=== PATIENT | male | born 1970 | race Caucasian/White ===

== ENCOUNTER 2016-11-25 18:10 | Emergency (ER) | payer MEDICAID, OTHER ==
[2016-11-25 18:40] VITALS: BP 126/80
--- NOTE | 2016-11-25 18:55 | UC ---
Shoulder Pain HPI - HPI Summary HPI Summary: The patient comes in today for: 1. Left shoulder and neck pain: Onset: 2 days ago. Palliative/provocative: Hot water makes it feel better. Quality: Sharp pain at times. Burning pain at times--"Like a pulled muscle." Region/radiation: Depending on his movement, the pain may be in the posterior left neck or the shoulder or the arm. Severity: Intially, it was a 10/10, but now it is a 5/10 Time: Associated symptoms: Progression: He states that it has been improving. Previous treatment: Hot showers and Tylenol. Previous illness: He thinks that with his back pain, he "tosses and turns at night" which he thinks caused it. Numbness: He states that the left arm tingles. Weakness: None. Injury: None to the lower neck or back. Legal: The patient has a legal (workmen's compensation) case regarding his lower back pain. 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 The patient thinks that he would want x-rays. * - History of Current Complaint Chief Complaint: UCUpperExtremity Stated Complaint: NECK AND SHOULDER PAIN Time Seen by Provider: 11/25/16 18:35 Hx Obtained From: Patient - Allergies/Home Medications Allergies/Adverse Reactions: Allergies Allergy/AdvReac Type Severity Reaction Status Date / Time No Known Allergies Allergy Verified 11/25/16 18:40 PMH/Surg Hx/FS Hx/Imm Hx Previously Healthy: Yes Endocrine History Of: Denies: Diabetes, Thyroid Disease, Hyperthyroidism, Hypothyroidism, Dyslipidemia Cardiovascular History Of: Denies: Cardiac Disorders, Hypertension, Pacemaker/ICD, Myocardial Infarction , Congestive Heart Failure, Atrial Fibrillation, Deep Vein Thrombosis, Bleeding Disorders Respiratory History Of: Denies: COPD, Asthma, Bronchitis, Pneumonia, Pulmonary Embolism GI/ History Of: Reports: Gastroesophageal Reflux - He will wake up "every once in a while with a sore throat." Denies: Ulcer, Gastrointestinal Bleed, Gall Bladder Disease, Kidney Stones, Diverticulitis, Renal Disease, Urosepsis Neurological History Of: Denies: TIA, CVA, Dementia, Seizures, Migraine Psychological History Of: Denies: Anxiety, Depression, Bipolar Disorder, Schizophrenia, Post Traumatic Stress Disorder Cancer History Of: Denies: Lung Cancer, Colorectal Cancer, Breast Cancer, Prostate Cancer, Cervical Cancer Other History Of: Negative For: HIV, Hepatitis B, Hepatitis C, Anticoagulant Therapy - Surgical History Surgical History: Yes Surgery Procedure, Year, and Place: Left knee 1994. Right Knee 1993 - Family History Known Family History: Negative: Cardiac Disease, Hypertension - Social History Occupation: Unemployed Lives: With Family Alcohol Use: None Substance Use Type: Marijuana Smoking Status (MU): Former Smoker Type: Cigarettes Length of Time of Smoking/Using Tobacco: 25 years When Did the Patient Quit Smoking/Using Tobacco: 2009 - Immunization History Most Recent Influenza Vaccination: denies Review of Systems Constitutional: Negative Skin: Negative Eyes: Negative ENT: Negative Respiratory: Negative Cardiovascular: Negative Gastrointestinal: Negative Genitourinary: Negative Motor: Negative All Other Systems Reviewed And Are Negative: Yes Physical Exam Triage Information Reviewed: Yes Appearance: Well-Appearing, No Pain Distress, Well-Nourished Vital Signs: Initial Vital Signs Temp 99.1 F 11/25/16 18:30 Pulse 74 11/25/16 18:30 Resp 18 11/25/16 18:30 BP 126/80 11/25/16 18:30 Pulse Ox 94 11/25/16 18:30 Vital Signs Reviewed: Yes Eyes: Positive: Conjunctiva Clear. Negative: Discharge ENT: Positive: Hearing grossly normal. Negative: Pharyngeal erythema, Nasal congestion, Nasal drainage, TM bulging, TM dull, TM red, Tonsillar swelling, Tonsillar exudate Dental: Negative: Gross Decay/Caries @, Dental Fracture @ Neck: Positive: Supple, Nontender, No Lymphadenopathy. Negative: Nuchal Rigidity Respiratory: Positive: Chest non-tender, Lungs clear, No respiratory distress, No accessory muscle use. Negative: Crackles, Wheezing Cardiovascular: Positive: RRR, No Murmur Abdomen Description: Positive: Nontender, No Organomegaly, Soft. Negative: Distended, Guarding Musculoskeletal: Positive: Strength Intact, ROM Intact, No Edema, Other: - Neck : The patient has good flexion, but backward extention was limited. Left rotation and flexion was limited. There was tenderness to palpation of the left scalene, and supraspinatous/trapezius musculature. NVI for both upper arms. There was no fasisculations or atrophy. There were no enlarged lymph nodes. DTR are 2+/2 x 2 for triceps, biceps, and brachioradialis. Neurological: Positive: Alert, Muscle Tone Normal Psychological: Positive: Age Appropriate Behavior, Consolable Skin: Negative: rashes, breakdown Diagnostics - Radiology No standard instances Xray Interpretation: Positive (See Comments) - He has degenerative changes of the cervical spine and shoulder. Radiology Interpretation Completed By: Radiologist Shoulder Course/Dx - Course Course Of Treatment: Patient was told of the results (degenerative changes of left shoulder and cervical spine) - Differential Dx/Diagnosis Provider Diagnoses: shoulder strain (left). Cervical strain (left). degenerative changes of the cervical spine and the left shoulder. Discharge - Discharge Plan Condition: Stable Disposition: HOME Patient Education Materials: Cervical Strain (ED), Shoulder Sprain (ED) Referrals: No Primary Care Phys,NOPCP [Primary Care Provider] - [facility] REFERRAL [Outside] Additional Instructions: Please see your primary care provider in a week to see how well you are doing. If you don't have a primary care provider, please call the physician referral phone line to help you get one. If you can't get in timely, you can see us until you do. If you get worse, please go to the local ER.
--- NOTE | 2016-11-25 19:36 | RAD ---
Indication: Limited range of motion of the neck and burning sensation with turning LEFT or RIGHT with radiation to the RIGHT shoulder and arm. No preceding injury. Comparison: None. Technique: AP, open-mouth odontoid, lateral, and oblique views cervical spine. Report: Straightening without subluxation at any level. Negative for fracture. Multilevel mild vertebral endplate osteophytosis. No significant disc space narrowing. Multilevel mild facet joint osteoarthritis. While obliquity limits assessment there is suggestion of potential osseous foraminal stenosis at C5-C6 on the RIGHT secondary to uncinate process spurring and facet joint osteoarthritis. Unremarkable prevertebral soft tissue contours. IMPRESSION: Multilevel mild degenerative spondylosis and facet joint osteoarthritis. While obliquity limits assessment there is suggestion of potential osseous foraminal stenosis at C5-C6 on the RIGHT secondary to uncinate process spurring and facet joint osteoarthritis. Correlate with clinical assessment and consider nonemergent MRI for most accurate assessment of foraminal stenosis.
--- NOTE | 2016-11-25 19:38 | RAD ---
Indication: Pain without proceeding injury. Comparison: No relevant prior exams available on the [facility] PACS. Technique: Internal and external rotation AP and scapular Y views LEFT shoulder Report: Normal acromioclavicular and glenohumeral joint alignment. Mild osteophytosis at both the acromioclavicular and glenohumeral joints. Negative for fracture, focal osseous lesion, or stigmata of calcific tendinopathy. Unremarkable soft tissue contours. IMPRESSION: Mild acromioclavicular and glenohumeral joint osteoarthritis.
== END 2016-11-25 20:17 | disposition home or self-care (01) ==
LOC: UCEAST 18:10
DX: S46.912A Strain of unspecified muscle, fascia and tendon at shoulder and upper arm level, left arm, initial encounter (principal); S16.1XXA Strain of muscle, fascia and tendon at neck level, initial encounter; X58.XXXA Exposure to other specified factors, initial encounter; Y93.9 Activity, unspecified; Y92.9 Unspecified place or not applicable; M50.30 Other cervical disc degeneration, unspecified cervical region; M19.012 Primary osteoarthritis, left shoulder; Z87.891 Personal history of nicotine dependence
CPT/HCPCS: 72050; 99202; G0463

== ENCOUNTER 2017-11-27 15:10 | Emergency (ER) | payer OTHER ==
[2017-11-27 15:43] VITALS: BP 147/86
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
== END 2017-11-27 17:09 | disposition home or self-care (01) ==
LOC: UCEAST 15:10
DX: M54.6 Pain in thoracic spine (principal); M54.2 Cervicalgia; M79.641 Pain in right hand; M25.531 Pain in right wrist; R20.2 Paresthesia of skin; Z87.891 Personal history of nicotine dependence
CPT/HCPCS: 72125; 72128; 99211; G0463

== ENCOUNTER 2018-01-25 09:58 | Emergency (ER) | payer SELFPAY ==
[2018-01-25 10:05] VITALS: BP 118/75
--- NOTE | 2018-01-25 10:41 | UC ---
FLU HPI - HPI Summary HPI Summary: symptoms started 3 days ago with fever, chills, cough, body aches, ST. next day had diarrhea, and today coughing and chest snyder with cough. is feeling worse not better. Pt did not receive Flu shot this year has tried no meds - History of Current Complaint Chief Complaint: UCRespiratory Stated Complaint: COUGH, AND DIARRHEA Time Seen by Provider: 01/25/18 10:18 Hx Obtained From: Patient Onset/Duration: Sudden Onset Severity Currently: Moderate Severity Initially: Moderate Pain Intensity: 6 Associated Signs & Symptoms: Positive: Fever, Cough, Sore Throat, Nasal Congestion, Diarrhea - Allergy/Home Medications Allergies/Adverse Reactions: Allergies Allergy/AdvReac Type Severity Reaction Status Date / Time No Known Allergies Allergy Verified 01/25/18 10:06 Home Medications: Home Medications Omeprazole 40 mg PO DAILY 01/25/18 [History Confirmed 01/25/18] PMH/Surg Hx/FS Hx/Imm Hx Previously Healthy: Yes GI/ History: Gastroesophageal Reflux Other History Of: Negative For: HIV, Hepatitis B, Hepatitis C, Anticoagulant Therapy - Surgical History Surgical History: Yes Surgery Procedure, Year, and Place: Left knee 1994 CALCIUM BUILD UP REMOVED. Right Knee 1993 MENISCUS REPAIR - Family History Known Family History: Positive: None Negative: Cardiac Disease, Hypertension - Social History Occupation: Disabled Lives: With Family Alcohol Use: None Substance Use Type: Marijuana Smoking Status (MU): Former Smoker Type: Cigarettes Length of Time of Smoking/Using Tobacco: 25 years When Did the Patient Quit Smoking/Using Tobacco: 2009 - Immunization History Most Recent Influenza Vaccination: denies Review of Systems Constitutional: Fever, Chills, Fatigue Skin: Negative Eyes: Negative ENT: Sore Throat, Sinus Congestion Respiratory: Cough Cardiovascular: Negative Gastrointestinal: Diarrhea Genitourinary: Negative Neurological: Negative Psychological: Negative Is Patient Immunocompromised?: No All Other Systems Reviewed And Are Negative: Yes Physical Exam Triage Information Reviewed: Yes Appearance: Well-Appearing, No Pain Distress, Well-Nourished Vital Signs: Initial Vital Signs Temp 98 F 01/25/18 10:03 Pulse 86 01/25/18 10:03 Resp 16 01/25/18 10:03 BP 118/75 01/25/18 10:03 Pulse Ox 99 01/25/18 10:03 Vital Signs Reviewed: Yes Eyes: Positive: Conjunctiva Clear ENT: Positive: Pharynx normal, Nasal congestion, TMs normal Neck exam: Normal Neck: Positive: Supple, Nontender, No Lymphadenopathy Respiratory: Positive: Lungs clear Cardiovascular Exam: Normal Cardiovascular: Positive: RRR Abdominal Exam: Normal Abdomen Description: Positive: Nontender, No Organomegaly, Soft Bowel Sounds: Positive: Present Neurological Exam: Normal Neurological: Positive: Alert Psychological Exam: Normal Skin Exam: Normal Skin: Negative: rashes Flu Course/Dx - Differential Dx/Diagnosis Differential Diagnosis/HQI/PQRI: Bronchitis, Influenza, Pneumonia, Upper Respiratory Infection Provider Diagnoses: upper respiratory infection Discharge - Sign-Out/Discharge Documenting (check all that apply): Discharge/Admit/Transfer - Discharge Plan Condition: Good Disposition: HOME Prescriptions: Azithromyxin SAHARA (NF) [Z-Sahara (Zithromax) 250 mg tabs #6] 2 tab PO .TODAY, THEN 1 DAILY #6 tab Patient Education Materials: Upper Respiratory Infection (ED) Referrals: Garry Barkley MD [Primary Care Provider] - 2 Days (if no better) Additional Instructions: drink plenty of fluuids may continue DayQuil and Nyquil for symptom relief as directed - Billing Disposition and Condition Condition: GOOD Disposition: HOME
== END 2018-01-25 11:10 | disposition home or self-care (01) ==
LOC: UCEAST 09:58
DX: J06.9 Acute upper respiratory infection, unspecified (principal); K21.9 Gastro-esophageal reflux disease without esophagitis; Z87.891 Personal history of nicotine dependence
CPT/HCPCS: 87502; 99212; G0463

== ENCOUNTER 2019-03-15 08:09 | Emergency (ER) | payer MEDICAID, OTHER ==
[2019-03-15 08:26] VITALS: BP 115/71
--- NOTE | 2019-03-15 08:57 | UC ---
Neck Pain HPI - HPI Summary HPI Summary: 48-year-old male who during the night and felt like he was getting a right trapezius muscle strain with no known injury. He does landscaping. He states when he awakened this morning the muscle was more tight and more tender. No recent illness, no fever. - History of Current Complaint Chief Complaint: UCBackPain Stated Complaint: NECK/SHOULDER UPPER BACK PAIN Time Seen by Provider: 03/15/19 08:52 Hx Obtained From: Patient Onset/Duration Of Injury/Symptoms: Hours Mechanism Of Injury: No Known Trauma Timing: Intermittent Episodes Onset/Duration: Gradual Onset - Pain mostly with movement. Gradual onset during the night and he awakened this morning and the pain was worse. Severity: Mild Pain Intensity: 7 Character: Dull, Aching Aggravating Factors: Movement Alleviating Factors: Position Associated Signs & Symptoms: Positive: Negative - Allergies/Home Medications Allergies/Adverse Reactions: Allergies Allergy/AdvReac Type Severity Reaction Status Date / Time No Known Allergies Allergy Verified 03/15/19 08:26 Home Medications: Home Medications Acetaminophen [Pain Relief Extra Strength] 1,000 mg PO ONCE PRN 03/15/19 [ History Confirmed 03/15/19] PMH/Surg Hx/FS Hx/Imm Hx Previously Healthy: Yes Other History Of: Negative For: HIV, Hepatitis B, Hepatitis C, Anticoagulant Therapy - Surgical History Surgical History: Yes Surgery Procedure, Year, and Place: Left knee 1994 CALCIUM BUILD UP REMOVED. Right Knee 1993 MENISCUS REPAIR - Family History Known Family History: Positive: None Negative: Cardiac Disease, Hypertension - Social History Alcohol Use: Occasionally Substance Use Type: Marijuana Smoking Status (MU): Former Smoker Type: Cigarettes Length of Time of Smoking/Using Tobacco: 25 years When Did the Patient Quit Smoking/Using Tobacco: 2009 - Immunization History Most Recent Influenza Vaccination: denies Review of Systems All Other Systems Reviewed And Are Negative: Yes Motor: Positive: Other - Pain and tightness right trapezius muscle and right sternocleidomastoid muscle with movement. Is Patient Immunocompromised?: No Physical Exam Triage Information Reviewed: Yes Appearance: Well-Appearing, No Pain Distress, Well-Nourished Vital Signs: Initial Vital Signs Temp 98.9 F 03/15/19 08:22 Pulse 56 03/15/19 08:22 Resp 18 03/15/19 08:22 BP 115/71 03/15/19 08:22 Pulse Ox 97 06/17/19 08:22 Vital Signs Reviewed: Yes Eyes: Positive: Conjunctiva Clear ENT: Positive: Hearing grossly normal, Pharynx normal, TMs normal, Uvula midline Neck: Positive: Supple, No Lymphadenopathy, Other: - Tenderness on palpation to the right sternocleidomastoid muscle however it is not presently in spasm. Respiratory: Positive: Lungs clear, Normal breath sounds, No respiratory distress, No accessory muscle use Cardiovascular: Positive: RRR, No Murmur, Pulses Normal, Brisk Capillary Refill Musculoskeletal: Positive: Strength Intact, ROM Intact, Other: - Patient has good range of motion however he does have pain in the right trapezius muscle up into the sternocleidomastoid muscle with movement. The muscle itself is mildly tender on palpation and feels very tight. Neurological Exam: Normal Psychological Exam: Normal Skin Exam: Normal Neck Pain Course/Dx - Course Course Of Treatment: This is a typical right trapezius muscle strain and partially right torticollis. I'm giving patient off work until Friday, he is to apply heat to the sore areas, take Flexeril and Motrin as prescribed. He is to avoid movements that cause pain. - Differential Dx/Diagnosis Provider Diagnosis: Torticollis Discharge - Sign-Out/Discharge Documenting (check all that apply): Patient Departure All imaging exams completed and their final reports reviewed: No Studies - Discharge Plan Condition: Fair Disposition: HOME Prescriptions: Cyclobenzaprine TAB* [Flexeril 10 MG TAB*] 10 mg PO TID PRN #15 tab PRN Reason: Pain Ibuprofen TAB* [Motrin TAB* 600 MG] 600 mg PO Q8H PRN #15 tab PRN Reason: Pain Patient Education Materials: Cervical Strain (DC) Forms: *Work Release Referrals: Garry Barkley MD [Primary Care Provider] - Additional Instructions: Apply heat to the sore area, do not drink alcohol, drive or operate machinery while you're taking the muscle relaxant. Follow-up with your primary care provider on Friday if no improvement. Avoid movements that cause pain. - Billing Disposition and Condition Condition: FAIR Disposition: Home
== END 2019-03-15 09:00 | disposition home or self-care (01) ==
LOC: UCEAST 08:09
DX: M43.6 Torticollis (principal); Z87.891 Personal history of nicotine dependence
CPT/HCPCS: 99212; G0463

== ENCOUNTER 2019-03-29 07:39 | Emergency (ER) | payer SELFPAY ==
[2019-03-29 07:52] VITALS: BP 118/79
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
== END 2019-03-29 08:50 | disposition home or self-care (01) ==
LOC: UCEAST 07:39
DX: S93.602A Unspecified sprain of left foot, initial encounter (principal); V29.88XA Motorcycle rider (driver) (passenger) injured in other specified transport accidents, initial encounter; Y92.410 Unspecified street and highway as the place of occurrence of the external cause; Z87.891 Personal history of nicotine dependence
CPT/HCPCS: 99201; G0463

== ENCOUNTER 2019-04-13 11:07 | Emergency (ER) | payer SELFPAY ==
[2019-04-13 11:48] VITALS: BP 115/62
--- NOTE | 2019-04-13 12:23 | UC ---
Skin Complaint HPI - HPI Summary HPI Summary: 48 yo male presents with RIGHT shoulder bug bite. He tells me that about a week ago he had a bug bite to the area that he thinks was a spider bite. About 4 days ago he started developing redness that has gotten larger and slightly warm. No fevers, chills, or drainage from the site. - History of Current Complaint Chief Complaint: UCSkin Time Seen by Provider: 04/13/19 12:23 Stated Complaint: BITE RT UPPER ARM Hx Obtained From: Patient Onset/Duration: Gradual Onset Onset Severity: Mild Current Severity: Mild Pain Intensity: 3 Pain Scale Used: 0-10 Numeric - Allergy/Home Medications Allergies/Adverse Reactions: Allergies Allergy/AdvReac Type Severity Reaction Status Date / Time No Known Allergies Allergy Verified 04/13/19 11:48 PMH/Surg Hx/FS Hx/Imm Hx - Additional Past Medical History Additional PMH: None Other History Of: Negative For: HIV, Hepatitis B, Hepatitis C, Anticoagulant Therapy - Surgical History Surgical History: Yes Surgery Procedure, Year, and Place: Left knee 1994 [facility] BUILD UP REMOVED. Right Knee 1993 [facility] REPAIR - Family History Known Family History: Positive: None Negative: Cardiac Disease, Hypertension - Social History Lives: With Family Alcohol Use: Occasionally Substance Use Type: Marijuana Smoking Status (MU): Former Smoker Type: Cigarettes Length of Time of Smoking/Using Tobacco: 25 years When Did the Patient Quit Smoking/Using Tobacco: 2009 - Immunization History Most Recent Influenza Vaccination: denies Review of Systems All Other Systems Reviewed And Are Negative: Yes Constitutional: Positive: Negative Skin: Positive: Other - Redness and bug bite right shoulder Respiratory: Positive: Negative Cardiovascular: Positive: Negative Neurovascular: Positive: Negative Musculoskeletal: Positive: Negative Neurological: Positive: Negative Psychological: Positive: Negative Physical Exam - Summary Physical Exam Summary: GENERAL: NAD. WDWN. No pain distress. SKIN: RIGHT SHOULDER: 5.5cm diameter area of mild erythema and warmth with central bug bite. Slightly TTP. No streaking, drainage, abscess, or edema. NECK: Supple. Nontender. No lymphadenopathy. CHEST: No accessory muscle use. Breathing comfortably and in no distress. CV: Pulses intact. Cap refill <2seconds MSK: Right shoulder: FROM without pain NEURO: Alert. PSYCH: Age appropriate behavior. Triage Information Reviewed: Yes Vital Signs: Initial Vital Signs Temp 98 F 04/13/19 11:45 Pulse 68 04/13/19 11:45 Resp 17 04/13/19 11:45 BP 115/62 04/13/19 11:45 Pulse Ox 100 04/13/19 11:45 Vital Signs Reviewed: Yes Course/Dx - Course Course Of Treatment: Right shoulder cellulitis s/p bug bite. Will start him with keflex and have him return if he develops a fever, spreading redness, drainage, or streaking. - Diagnoses Provider Diagnosis: Cellulitis of right shoulder Discharge - Sign-Out/Discharge Documenting (check all that apply): Patient Departure All imaging exams completed and their final reports reviewed: No Studies - Discharge Plan Condition: Stable Disposition: HOME Prescriptions: Cephalexin CAP* [Keflex CAP*] 500 mg PO TID #21 cap Patient Education Materials: Cellulitis (DC), Insect Bite or Sting (ED) Referrals: Garry Barkley MD [Primary Care Provider] - Additional Instructions: If you develop a fever, shortness of breath, chest pain, new or worsening symptoms - please call your PCP or go to the ED immediately. 1) If you notice increased redness or develop streaking, increased pain, or drainage - please be rechecked immediately - Billing Disposition and Condition Condition: STABLE Disposition: Home
== END 2019-04-13 12:45 | disposition home or self-care (01) ==
LOC: UCEAST 11:07
DX: L03.113 Cellulitis of right upper limb (principal); Z87.891 Personal history of nicotine dependence
CPT/HCPCS: 99212; G0463

== ENCOUNTER 2019-05-12 10:53 | Emergency (ER) | payer SELFPAY ==
[2019-05-12 11:21] VITALS: BP 96/47
--- NOTE | 2019-05-12 12:14 | UC ---
Shoulder Pain HPI - HPI Summary HPI Summary: Patient is a 48-year-old male here with right shoulder pain. Patient fell at work one week ago onto his right shoulder. 5 days ago, patient woke up with pain in his right shoulder. Patient has limited range of motion in his right shoulder secondary to pain. Patient has no weakness or numbness. Patient relates this to a spider bite that occurred one month ago but his spider bite appears to be well-healed. Patient isn't taking Tylenol and Aleve for pain with minimal relief. Medications reviewed - History of Current Complaint Chief Complaint: UCUpperExtremity Stated Complaint: R ARM/SHOULDER PAIN Time Seen by Provider: 05/12/19 11:54 Hx Obtained From: Patient Onset/Duration: Gradual Onset Timing: Constant Severity Initially: Mild Severity Currently: Moderate Pain Intensity: 5 - Allergies/Home Medications Allergies/Adverse Reactions: Allergies Allergy/AdvReac Type Severity Reaction Status Date / Time No Known Allergies Allergy Verified 05/12/19 11:21 Home Medications: Home Medications NK [No Home Medications Reported] 05/12/19 [History Confirmed 05/12/19] PMH/Surg Hx/FS Hx/Imm Hx Previously Healthy: Yes Other History Of: Negative For: HIV, Hepatitis B, Hepatitis C, Anticoagulant Therapy - Surgical History Surgical History: Yes Surgery Procedure, Year, and Place: Left knee 1994 [facility] BUILD UP REMOVED. Right Knee 1993 [facility] REPAIR - Family History Known Family History: Positive: None Negative: Cardiac Disease, Hypertension - Social History Alcohol Use: Occasionally Substance Use Type: Marijuana Smoking Status (MU): Former Smoker Type: Cigarettes Length of Time of Smoking/Using Tobacco: 25 years When Did the Patient Quit Smoking/Using Tobacco: 2009 - Immunization History Most Recent Influenza Vaccination: denies Review of Systems All Other Systems Reviewed And Are Negative: Yes Constitutional: Negative: Fever, Chills Skin: Negative: Rash, Bruising Physical Exam - Summary Physical Exam Summary: Vital Signs Reviewed: Yes A+Ox3, no distress Eyes: Conjunctiva Clear ENT: Hearing grossly normal neck: supple Respiratory: Positive: No respiratory distress, No accessory muscle use Cardiovascular: skin color reflect adequate perfusion Musculoskeletal Exam: Right shoulder with tenderness of the anterior joint space. No distal tenderness no clavicle tenderness. Radial pulse 2+. Patient unable to place hand behind his back. Patient unable to abduct past 90. Patient with a positive Neer's test Neurological: Positive: Alert, ambulatory without difficulty Triage Information Reviewed: Yes Vital Signs: Initial Vital Signs Temp 98.6 F 05/12/19 11:16 Pulse 64 05/12/19 11:16 Resp 20 05/12/19 11:16 BP 96/47 05/12/19 11:16 Pulse Ox 97 05/12/19 11:16 Shoulder Course/Dx - Course Course Of Treatment: Patient is here with symptoms consistent with rotator cuff tendinitis. Patient had a negative x-ray for any fracture given the fact he fell on the shoulder one week ago. Patient was given a physical therapy referral and orthopedic referral. - Differential Dx/Diagnosis Provider Diagnosis: Rotator cuff tendinitis Discharge - Sign-Out/Discharge Documenting (check all that apply): Patient Departure All imaging exams completed and their final reports reviewed: Yes - Discharge Plan Condition: Stable Disposition: HOME Patient Education Materials: Rotator Cuff Tendinitis (ED) Referrals: Khai Schuster MD [Medical Doctor] - Garry Barkley MD [Primary Care Provider] - Additional Instructions: Please use the physical therapy referral Please call orthopedic doctor to set up an appointment Please take Aleve and Tylenol for pain - Billing Disposition and Condition Condition: STABLE Disposition: Home
== END 2019-05-12 12:50 | disposition home or self-care (01) ==
LOC: UCEAST 10:53
DX: M75.101 Unspecified rotator cuff tear or rupture of right shoulder, not specified as traumatic (principal); Z87.891 Personal history of nicotine dependence
CPT/HCPCS: 99211; G0463